=== PATIENT | male | born 1950 | race Caucasian/White ===

== ENCOUNTER → 2017-09-07 | Outpatient (CLI) | payer BC ==
[2017-09-07 13:13] LABS: BASO % 0.5 %; BASO ABS # 0.04 K/uL (0-0.2); EOS % 19.6 %; EOS ABS # 1.61 K/uL (0-0.5); HEMATOCRIT 39.8 % (42-52); HEMOGLOBIN 13.7 g/dL (14.0-18.0); IG# 0.04 K/uL (0.00-0.02); LYMPH % 28.7 %; LYMPH ABS # 2.36 K/uL (1.2-3.4); MEAN CELL VOLUME 94.3 fL (80-100); MEAN CORPUSCULAR HEMOGLOBIN 32.5 pg (25-34); MEAN CORPUSCULAR HGB CONC 34.4 g/dl (32-36); MEAN PLATELET VOLUME 9.8 fL (7.4-10.4); MONO ABS # 0.58 K/uL (0.11-0.59); NEUT % 43.7 %; PLATELET COUNT 205 K/uL (130-400); RED CELL DISTRIBUTION WIDTH SD 44.4 fL (36.4-46.3); WHITE BLOOD COUNT 8.23 K/uL (4.8-10.8)
[2017-09-07 13:27] LABS: BLOOD UREA NITROGEN 12 mg/dl (7-18); CALCIUM 8.6 mg/dl (8.5-10.1); CARBON DIOXIDE 29 mmol/L (21-32); CREATININE 0.96 mg/dl (0.60-1.40); GLUCOSE 90 mg/dl (70-99); POTASSIUM 3.9 mmol/L (3.5-5.1); SODIUM 141 mmol/L (136-145)
== END | disposition home or self-care (01) ==
LOC: C.LABMFLN 09:09
PROVIDERS: ATTEND Family Medicine
DX: Z00.00 Encounter for general adult medical examination without abnormal findings (principal); I10 Essential (primary) hypertension; R06.09 Other forms of dyspnea